=== PATIENT | female | born 1990 | race Caucasian/White ===

== ENCOUNTER 2019-07-18 10:49 | Emergency (ER) | payer BC ==
--- OUTSIDE RECORDS SUMMARY | 2019-07-18 10:57 | XMS REPORT | Continuity of Care Document ---
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 Onset: 12/02/2014 Social History Type Date Description Comments Sex Unknown ETOH Use Currently consumes 2 times per month alcohol Tobacco Use Start: Unknown Patient has never smoked Recreational Drug Use Denies Drug Use Smoking Status Reviewed: 07/13/19 Patient has never smoked Exercise Type/Frequency Exercises regularly Allergies, Adverse Reactions, Alerts Active Allergies Reaction Severity Comments Date Tape 07/28/2014 Percocet Nausea and Vomiting "too high dose" 06/23/2015 Inactive Allergies NKDA 11/21/2015 Medications Active Medications SIG Qnty Indications Ordering Date Provider Naratriptan HCL take one tab by 12takirstie Merino 07/13/2019 mouth twice a day as Jase Villafana 2.5mg Tablets needed for severe migraines, max 2 days/week [facility] Magnesium Oxide 1 by mouth every day 90tabs G43.909 Van Merino 2018 Jase Villafana 500mg Tablets Nuvaring one ring vaginally, 3units Z01.419 Eliu Floyd, 03/02/2019 remove in 3 weeks, 0.12-0.015mg/24HR then new ring Ring Continuously G43.909 Fioricet take one capsule by 30caps G43.909 Quynh Hutchins, 07/26/2016 50-300-40mg mouth every 6 hours N.P. Capsules as needed for headaches; maximum daily dose = 4 Clindamycin Phosphate apply to face twice 60units L70.8 Quynh Hutchins, a day N.P. 1% Lotion Ibuprofen as needed Unknown 200mg Capsules Probiotic 1 by mouth every day Unknown Capsules History Medications Sumatriptan 1 tab po at the 12tabs G43.909 Van SEmily 04/13/2019 - Succinate onset of Jase Villafana 07/13/2019 100mg migraine, but can Tablets repeat 2 hours later, max 2 days a week Immunizations CPT Code Status Date Vaccine Lot # 60410 Given 02/18/2019 Influenza Virus Vaccine, Quadrivalent, Split, Preservative Free [id number] Given 02/06/2018 Influenza Virus Vaccine, Quadrivalent, Split, Preservative Free [id number] Given 11/21/2015 Tdap - Tetanus/Diptheria/Acellular Pertussis [id number] Given 02/23/2014 Afluria Vaccine Vital Signs Date Vital Result Comment 07/13/2019 8:17am Height 64 inches 5'4" Weight 150.00 lb Heart Rate 76 /min BP Systolic Sitting 100 mmHg BP Diastolic Sitting 64 mmHg Respiratory Rate 18 /min BMI (Body Mass Index) 25.7 kg/m2 04/13/2019 11:18am Height 64 inches 5'4" Weight 140.00 lb Heart Rate 68 /min BP Systolic 132 mmHg BP Diastolic 82 mmHg BMI (Body Mass Index) 24.0 kg/m2 Results Description No Information Available Procedures Description No Information Available Medical Devices Description No Information Available Encounters Type Date Location Provider Dx Diagnosis Office Visit 04/13/2019 [facility] Jorge Morgan NP G43.909 Migraine , unsp, 11:00a [employer] not intractable, without status migrainosus G43.009 Migraine w/o aura, not intractable, w/o status migrainosus Assessments Date Code Description Provider 07/13/2019 G43.909 Migraine, unspecified, not intractable, without Jorge Morgan NP status migrainosus 04/13/2019 G43.909 Migraine, unspecified, not intractable, without Jorge Morgan NP status migrainosus 04/13/2019 G43.009 Migraine without aura, not intractable, without Jorge Morgan NP status migrainosus 03/02/2019 Z01.419 Encounter for gynecological examination Eliu Floyd MD (general) (routine) without abnormal findings 03/02/2019 G43.809 Other migraine, not intractable, without status Eliu Floyd MD migrainosus Plan of Treatment Future Appointment(s):10/12/2019 8:00 am - Jorge Morgan NP at [facility]07/13/2019 - Jorge Morgan NPG43.909 Migraine, unspecified, not intractable, without status migrainosusFollow up:[facility] Functional Status Description No Information Available Mental Status Description No Information Available Referrals Refer to Reason for Referral Status Appt Date Van Villafana MD Received Complete 04/13/2019 [address] [facility] [address] [place] [id number] [phone]
[2019-07-18 11:02] VITALS: BP 155/89
[2019-07-18] MEDS ORDERED: Ketorolac INJ* 30 MG/ML 1 ML VIAL IM ONE (11:08)
--- NOTE | 2019-07-18 11:12 | UC ---
Knee Pain HPI - HPI Summary HPI Summary: She was crouching putting her tires and when she straightened up she had severe pain in the lateral aspect of her right knee posteriorly it felt very tight on that side and then something popped in the car ride here and she got some relief but not complete relief. She is unable to completely straighten her leg. She is able to move her foot at the ankle but has pain with dorsiflexion. - History of Current Complaint Chief Complaint: UCLowerExtremity Stated Complaint: LEG INJURY Time Seen by Provider: 07/18/19 10:56 Hx Last Menstrual Period: 07/16/19 Pain Intensity: 9 - Allergies/Home Medications Allergies/Adverse Reactions: Allergies Allergy/AdvReac Type Severity Reaction Status Date / Time hydrocodone [From Vicodin] Allergy Intermediate Nausea Verified 07/18/19 11:02 sumatriptan Allergy Intermediate Nausea Verified 07/18/19 11:03 Home Medications: Home Medications Etonogest/Eth.estradiol (Nf) [Nuvaring Vaginal Ring] 1 each VAGINAL .SEE COMMENTS 07/18/19 [History Confirmed 07/18/19] PMH/Surg Hx/FS Hx/Imm Hx Previously Healthy: Yes - Surgical History Surgical History: Yes Surgery Procedure, Year, and Place: right shoulder x2,wisdom teeth - Social History Alcohol Use: Occasionally Substance Use Type: None Smoking Status (MU): Never Smoked Tobacco Review of Systems All Other Systems Reviewed And Are Negative: Yes Neurovascular: Positive: Negative Musculoskeletal: Positive: Decreased ROM Neurological/Mental Status: Positive: Negative Physical Exam - Summary Physical Exam Summary: She is nontoxic in appearance but clearly in pain Triage Information Reviewed: Yes Appearance: Pain Distress Vital Signs: Initial Vital Signs Temp 98.1 F 07/18/19 10:55 Pulse 100 07/18/19 10:55 Resp 19 07/18/19 10:55 BP 155/89 07/18/19 10:55 Pulse Ox 95 07/18/19 10:55 Vital Signs Reviewed: Yes Musculoskeletal: Positive: ROM Limited @ - I'm unable to straighten her leg completely without severe pain. She is keeping it flexed about 30 Neurological Exam: Normal Skin Exam: Normal Diagnostics - Radiology right knee Radiology Interpretation Completed By: Radiologist Summary of Radiographic Findings: no acute process Knee Pain Course/Dx - Course Course Of Treatment: She clearly hurt her knee badly. This sounds like it's likely a meniscus problem to me however it could be tendon or ligament or even a Dias's cyst. I recommended immobilization of the knee and close follow-up with orthopedic doc. She has a knee immobilizer and crutches at home and refused hours here. - Differential Dx/Diagnosis Provider Diagnosis: Knee injury Discharge ED - Sign-Out/Discharge Documenting (check all that apply): Patient Departure All imaging exams completed and their final reports reviewed: Yes - Discharge Plan Condition: Stable Disposition: HOME Patient Education Materials: Knee Pain (ED), Ibuprofen (By mouth) Referrals: Quynh Hutchins NP [Primary Care Provider] - Kait Frey MD [Medical Doctor] - - Billing Disposition and Condition Condition: STABLE Disposition: Home
== END 2019-07-18 12:30 | disposition home or self-care (01) ==
LOC: UCEAST 10:49
DX: S89.91XA Unspecified injury of right lower leg, initial encounter (principal); X50.9XXA Other and unspecified overexertion or strenuous movements or postures, initial encounter; Y92.9 Unspecified place or not applicable; Z88.6 Allergy status to analgesic agent
CPT/HCPCS: 96372; 99211; G0463; J1885